=== PATIENT | female | born 1975 | race Caucasian/White ===

== ENCOUNTER 2017-11-29 14:15 | Observation (INO) | payer OTHER ==
[~2017-11-29] VITALS: Ht 172.7 cm; Wt 99.9 kg
[~2017-11-29 14:15] MED LIST: ALBUTEROL2.5 MG/3 M IH; ASPIR-LOW81 MG PO; BUTALB-APAP-CA1 EACH PO; CAPACET CAPSUL1 EACH PO; CELEXA20 MG PO; DIVALPROEX SOD500 MG PO; Ecotrin PO; FLEXERIL10 MG PO; HYCODAN SYRUP480 ML PO; IMITREX; IMITREX6 MG/0.52 SC; Imitrex SC; LEVAQUIN750 MG PO; NAPROSYN500 MG PO; PERCOCET 5/31 TABLET PO; PREDNISONE10 MG PO; PREDNISONE20 MG PO; PROVENTIL,2.5 MG/3 M IH; TOPAMAX15 MG; TYLENOL REGULA325 MG PO; VALIUM5 MG PO; VENTOLIN HFA18 GM IH; [UNRECOGNIZED DRUG - OTHER] PO; [UNRECOGNIZED DRUG - REMARK] PO
[2017-11-29 16:17] LABS: HEMATOCRIT 37.6 % (36.0-46.0); HEMOGLOBIN 12.8 G/DL (11.9-15.5); MCH 30.4 PG (29.0-34.0); MCV 89.3 FL (83-99); PLATELET COUNT 274 K/uL (156-360); RBC DIS.WIDTH-CV 12.8 % (11.8-14.6); RBC DIS.WIDTH-SD 41.7 % (39-53); RED BLOOD COUNT 4.21 M/uL (3.80-5.20); WHITE BLOOD COUNT 8.3 K/uL (4.1-10.2)
[2017-11-29 16:26] LABS: CHLORIDE 104 mEq/L (99-109); POTASSIUM 3.4 mEq/L (3.7-5.4); SODIUM 142 mEq/L (136-147)
[2017-11-29 16:28] LABS: GLUCOSE 99 mg/dL (70-99)
[2017-11-29 16:32] LABS: CREATININE 0.6 mg/dL (0.6-1.3); GFR ESTIMATE (CALCULATED) > 59 mL/min/
[2017-11-29 16:33] LABS: UREA NITROGEN (BUN) 10 mg/dL (9-23)
[2017-11-29 16:38] LABS: TROP-I INTERPRETATION NEGATIVE; TROPONIN-I < 0.01 ng/mL (0.0-0.30)
[2017-11-29] MEDS ORDERED: LO-DOSE ASPIRIN81 M2 PO (18:55)
[2017-11-29 21:20] VITALS: BP 142/82
[2017-11-29 23:58] VITALS: BP 120/69
[2017-11-30 03:39] VITALS: BP 131/76
[2017-11-30 05:45] LABS: TROP-I INTERPRETATION NEGATIVE; TROPONIN-I < 0.01 ng/mL (0.0-0.30)
[2017-11-30 05:52] LABS: HDL CHOLESTEROL 46 MG/DL (Desirable>=50); LDL CHOLESTEROL 119 mg/dL (Desirable<100); NON-HDL CHOLESTEROL 145 mg/dL (Desirable<160); TOTAL CHOLESTEROL 191 mg/dL (Desirable<200); TRIGLYCERIDES 131 MG/DL (Normal: <150)
[2017-11-30 08:13] VITALS: BP 126/79
[2017-11-30 10:41] LABS: HEMOGLOBIN A1c (GLYCOHEMOGLOB) 5.7 % (Below 5.7)
== END 2017-11-30 09:20 | disposition home or self-care (01) ==
LOC: EME 14:15 → 4SOUTH 19:42 → EDOF 19:42 → ENRESERV 19:45 → 4SOUTH 20:59 → ENPENDDIS 11-30 08:02 → 4SOUTH 11-30 09:20
PROVIDERS: Physician Assistant Medical
DX: R07.89 Other chest pain (principal); R20.0 Anesthesia of skin; G43.809 Other migraine, not intractable, without status migrainosus; R94.02 Abnormal brain scan; I10 Essential (primary) hypertension; F41.9 Anxiety disorder, unspecified; E66.9 Obesity, unspecified; Z68.33 Body mass index [BMI] 33.0-33.9, adult; R56.9 Unspecified convulsions; Z82.49 Family history of ischemic heart disease and other diseases of the circulatory system; Z91.040 Latex allergy status
CPT/HCPCS: 70450; 71046; 80048; 80061; 83036; 84484; 85027; 93005; 99202; 99281; 99285; G0378; J1650